=== PATIENT | female | born 1960 | race Caucasian/White ===

== ENCOUNTER 2020-09-13 19:07 | Emergency (ER) | payer BC, OTHER ==
[~2020-09-13] VITALS: Ht 182.9 cm; Wt 81.6 kg
[2020-09-13 19:13] VITALS: BP_SYST 132
[2020-09-13] MEDS ORDERED: DIPH-TET-PERTUS Vaccine 0.5 ML VIAL (ADACEL) I.M. ONE (19:30)
[2020-09-13] MEDS ORDERED: BACITRACIN 1 GM OINT TP ONE (19:30)
[2020-09-13] MEDS ORDERED: CLIN300C12 PO (19:36)
[2020-09-13] MEDS ORDERED: IBUP-1969 PO (19:36)
[2020-09-13 19:45] VITALS: BP_SYST 132
== END 2020-09-13 19:45 | disposition home or self-care (01) ==
LOC: SED 19:07
DX: S60.454A Superficial foreign body of right ring finger, initial encounter (principal); Z79.899 Other long term (current) drug therapy; W22.8XXA Striking against or struck by other objects, initial encounter; Y93.89 Activity, other specified; Y92.89 Other specified places as the place of occurrence of the external cause; Y99.8 Other external cause status
CPT/HCPCS: 73140-TC; 90715; 99283